=== PATIENT | female | born 1955 | race African-American/Black ===

== ENCOUNTER 2016-07-03 17:57 | Emergency (ER) | payer OTHER ==
[~2016-07-03] VITALS: Ht 160 cm; Wt 79.4 kg
--- NOTE | 2016-07-03 18:54 | Emergency Room Report ---
History of Present Illness General Chief Complaint: Lower Extremity Injury Source: Patient (Marlen Garnett) Present Illness HPI 61-year-old female presents to emergency Department complaining of 10 out of 10 in severity right-sided leg pain since awakening this a.m. Patient states that she went out ballroom dancing yesterday and does have a history of arthritis in the knee and ankle however she is worried that she may have done something to the hip or thigh. Patient states pain is worse with weight bearing and walking. Patient states she is taking Motrin twice today with minimal relief. Patient denies nausea, vomiting, fevers chills recent fall or new injury. Patient denies erythema or increased temperature palpation about the thigh or the hip. She denies back pain . Denies claudication, denies recent travel, or estrogen replacement. Denies numbness tingling or loss of sensation or gross motor movements of the extremities, incontinence of bowel or bladder. Denies CP , Palpitations, LOC, AMS, dizziness, Changes in Vision, Sensation, paresthesias , or a sudden severe headache. (Marlen Garnett) Allergies: Coded Allergies: ASPIRIN (Verified Allergy, Unknown, 07/03/16) Uncoded Allergies: PENICILLIN (Allergy, Unknown, 07/03/16) Patient History Past Medical History: see triage record Past Surgical History: none Pertinent Family History: none Now: No : 4 Para: 2 Immunizations: UTD Reviewed Nursing Documentation: PMH: Agreed, PSxH: Agreed (Marlen Garnett) Nursing Documentation-PMH Hx Asthma: Yes (Marlen Garnett) Review of Systems All Other Systems: negative except mentioned in HPI (Marlen Garnett) Physical Exam Vital Signs Date Time Temp Pulse Resp B/P Pulse Ox O2 Delivery O2 Flow Rate FiO2 07/03/16 18:18 98.1 80 18 119/77 95 Room Air Sp02 EP Interpretation: reviewed, normal General Appearance: no apparent distress, alert, GCS 15, non-toxic Head: normocephalic, atraumatic Eyes: bilateral eye PERRL, bilateral eye normal inspection ENT: hearing grossly normal, normal pharynx, no angioedema, normal voice Neck: full range of motion, supple/symm/no masses Respiratory: chest non-tender, lungs clear, normal breath sounds, speaking full sentences Cardiovascular #1: regular rate, rhythm, no edema Gastrointestinal: normal bowel sounds, non tender, soft, no guarding, no rebound Rectal: deferred Genitourinary: normal inspection, no CVA tenderness Musculoskeletal: back normal, gait/station normal, normal range of motion, no calf tenderness, Mara's Sign negative, other - no swelling, erythema, or obvious deformity. , tender - Lateral right hip and anterior thigh, FROM with pain. Neurologic: alert, oriented x3, responsive, motor strength/tone normal, sensory intact, speech normal Psychiatric: judgement/insight normal, memory normal, mood/affect normal, no suicidal/homicidal ideation Skin: normal color, no rash, warm/dry, well hydrated Lymphatic: no adenopathy (Marlen Garnett) Medical Decision Making PA Attestation Dr. Fabian is my supervising Physician whom patient management has been discussed with. (Marlen Garnett) Diagnostic Impression: Primary Impression: Muscle strain of lower leg Qualified Codes: S86.911A - Strain of unspecified muscle(s) and tendon(s) at lower leg level, right leg, initial encounter Additional Impression: possible stress fracture of the right femur shaft. ER Course Pt. presents to the ED c/o right hip and thigh pain x 1 day. Ddx considered but are not limited to Fracture, dislocation, contusion, Sprain/ Strain/Spasm, DVT,avascular necrosis. Vital signs: are WNL, pt. is afebrile H&PE are most consistent with possible occult fx will r/o with imaging. ORDERS: - X-ray Right hip 2 views - negative for fx, Dislocation, or significant soft tissue injury, per preliminary read in ED by Dr. Fabian - X ray Right Femur 4 views: No fracture, dislocation, or soft tissue injury per soft read in the ED by Dr. Fabian --d/w pt. the results of her x-ray studies. ED INTERVENTIONS: - 1000mg Tylenol PO - Pt is given crutches, and instructed on their use. d/w pt. to rest the extremity, and to follow up with her PCP or assistive technology specialist. if conservative treatment does not help, further imaging studies may need to be preformed to evaluate for possible stress fracture. DISCHARGE: At this time pt. is stable for d/c to home. Will provide printed patient care instructions, and any necessary prescriptions. Care plan and follow up instructions have been discussed with the patient prior to discharge. (Marlen Garnett) ER Course Scribe documentation reviewed by me and is accurate. (aPrker Fabian M.D.) Last Vital Signs Date Time Temp Pulse Resp B/P Pulse Ox O2 Delivery O2 Flow Rate FiO2 07/03/16 18:18 98.1 80 18 119/77 95 Room Air (Marlen Garnett) Disposition: HOME, SELF-CARE Condition: Stable Scripts Acetaminophen With Codeine (T#3) (TYLENOL #3 TAB*) Y Tab 1 TAB ORAL Q6HR Y for For Pain, #15 TAB Prov: Marlen Garnett 07/03/16 Patient Instructions: Hip Pain, Stress Fracture Additional Instructions: Take medications as directed. Follow up with PCP in 3-5 days Return sooner to ED if new symptoms occur, or current symptoms become worse. Do not drink alcohol, drive, or operate heavy machinery while taking Tylenol #3 as this may cause drowsiness. Marlen Garnett Jul 03, 2016 18:54 Parker Fabian M.D. Jul 04, 2016 08:10
[2016-07-03] MEDS ORDERED: Acetaminophen 500mg (ES) tab ORAL ONE (19:15)
[2016-07-03] MEDS ORDERED: ACETAMINOPHEN-1 EAC1 ORAL (19:45)
[2016-07-03 19:55] VITALS: BP 119/77
--- NOTE | 2016-07-04 12:21 | Diagnostic Imaging Report ---
Indication: Pain Findings: 2 views of the right femur and hip were obtained. No acute fractures, malalignment, erosions or periostitis are identified. Bone mineralization is diffusely low. Soft tissues are unremarkable. Impression: No fracture identified. Osteopenia.
--- NOTE | 2016-08-04 12:41 | Diagnostic Imaging Report ---
Indications: Pain Technique: Two views right hip Findings: Comparison: None. No fracture, dislocation, lytic destruction, periosteal reaction, surrounding soft tissue swelling, or other acute changes are demonstrated. Multiple small nodular calcifications overlie the midline of the pelvis. Small phleboliths are present in the lateral aspect of the right hemipelvis. No deformity, alignment abnormality, arthritic change, or other chronic changes are demonstrated. IMPRESSION: Central pelvic calcifications most likely degenerated uterine fibroids Otherwise negative right hip series.
== END 2016-07-03 19:55 | disposition home or self-care (01) ==
LOC: EMR 18:54
DX: S86.911A Strain of unspecified muscle(s) and tendon(s) at lower leg level, right leg, initial encounter (principal); X58.XXXA Exposure to other specified factors, initial encounter; Y93.41 Activity, dancing; Y92.9 Unspecified place or not applicable; M19.079 Primary osteoarthritis, unspecified ankle and foot; M17.9 Osteoarthritis of knee, unspecified; Z88.0 Allergy status to penicillin; Z88.6 Allergy status to analgesic agent; Z87.09 Personal history of other diseases of the respiratory system
CPT/HCPCS: 99283

== ENCOUNTER 2017-06-06 07:57 | Emergency (ER) | payer OTHER ==
[~2017-06-06] VITALS: Ht 162.6 cm; Wt 72.6 kg
[~2017-06-06 07:57] MED LIST: ACETAMINOPHEN-1 EAC1 ORAL
[2017-06-06 08:02] VITALS: BP 120/65
--- NOTE | 2017-06-06 08:30 | Emergency Room Report ---
History of Present Illness General Chief Complaint: Earache Source: Patient, Medical Record Present Illness HPI Patient is a 62-year-old female who presented after increased right earache and ringing in her ears. Patient gradual onset of symptoms. Over the past 3 days. She reported having increased chest congestion a few days ago which had resolved. She reports taking some herbal medication which helped with cough however she is unsure this had anything to do with the ringing in her ears. She had taken intermittently Flonase for seasonal allergies. She denies severe headaches or fever Allergies: Coded Allergies: ASPIRIN (Verified Allergy, Unknown, 07/03/16) Uncoded Allergies: PENICILLIN (Allergy, Unknown, 07/03/16) Patient History Past Medical History: see triage record Last Menstrual Period: menopause Reviewed Nursing Documentation: PMH: Agreed, PSxH: Agreed Nursing Documentation-PMH Past Medical History: No History, Except For Hx Asthma: Yes Review of Systems All Other Systems: negative except mentioned in HPI Physical Exam Vital Signs Date Time Temp Pulse Resp B/P (MAP) Pulse Ox O2 Delivery O2 Flow Rate FiO2 06/06/17 08:02 98.1 72 18 120/65 97 Room Air General Appearance: well appearing, no apparent distress, alert, GCS 15 Head: normocephalic, atraumatic ENT: hearing grossly normal, normal voice Neck: full range of motion, supple Respiratory: chest non-tender, lungs clear, normal breath sounds, no respiratory distress, speaking full sentences Gastrointestinal: normal inspection Musculoskeletal: normal inspection, back normal, digits/nails normal Neurologic: alert, oriented x3, responsive, administrative technician III-XII nml as tested, motor strength/tone normal, normal gait Psychiatric: mood/affect normal Skin: normal inspection, no rash Medical Decision Making Diagnostic Impression: Primary Impression: Tinnitus of right ear Additional Impression: Upper respiratory infection ER Course Patient presented for right ear discomfort. Differential diagnosis included was not limited to otitis media, malignant otitis externa, foreign body, cellulitis, mastoiditis, carotid dissection, myocardial infarction among others. Patient's benign exam and does not appear to require any further imaging or laboratory testing at this time. The patient presented upper respiratory infection. She was given prescription for allergy medications. The patient was advised followup with primary for ENTreferral. Last Vital Signs Date Time Temp Pulse Resp B/P (MAP) Pulse Ox O2 Delivery O2 Flow Rate FiO2 06/06/17 08:02 98.1 72 18 120/65 97 Room Air Status: improved Disposition: HOME, SELF-CARE Condition: Stable Shadi Blount Jun 06, 2017 08:30
[2017-06-06] MEDS ORDERED: CLARITIN10 M2 ORAL (08:31)
[2017-06-06 08:34] VITALS: BP 118/70
== END 2017-06-06 09:00 | disposition home or self-care (01) ==
LOC: EMR 08:41
DX: H93.11 Tinnitus, right ear (principal); J06.9 Acute upper respiratory infection, unspecified; H92.01 Otalgia, right ear; Z88.0 Allergy status to penicillin; J45.909 Unspecified asthma, uncomplicated
CPT/HCPCS: 99282